=== PATIENT | male | born 1935 | race Caucasian/White ===

== ENCOUNTER 2018-03-07 21:28 | Inpatient (IN) | payer OTHER, MEDICARE ==
[~2018-03-07] VITALS: Ht 180.3 cm; Wt 101.2 kg
--- NOTE | 2018-03-07 21:29 | NUR ---
PT BIBA TO BED 06.
[2018-03-07 21:35] VITALS: BP_SYST 124; BP_SYST 88; BP_DIAS 53; BP_DIAS 58
[2018-03-07] MEDS ORDERED: NITROGLYCERIN 2% 1 GM PKT TP ONE (21:35)
--- NOTE | 2018-03-07 21:35 | NUR ---
pt biba for c/o sob chest pain since 1800 pt on bipap @ 50% en route to hospital. pt given 04 mg nitro sl. pt aaox2 following commands moving extremities. pt has rhonchi, rales bilaterally. SR 90s trace edema noted. abd soft non distended. bruising noted to bilateral upper arms, bp 90/56 @ this time. 100% spo2. MD and RT @ bedside. will continue to observe pmh: bph, htn, hypothroid, TE-MOAK, neuropathy ax: NKA
--- NOTE | 2018-03-07 21:55 | NUR ---
new piv started to R AC 20g and 22g R hand. no acute distress.
[2018-03-07 22:11] LABS: HEMOGLOBIN 7.1 g/dL (12.0-18.0); LYMPHOCYTES # (AUTO) 0.9 K/uL (2.0-11.5); NEUTROPHILS # (AUTO) 7.3 K/uL (1.8-7.7); NEUTROPHILS % (AUTO) 83.2 % (42.2-75.2); RED CELL DISTRIBUTION WIDTH 18.8 % (11.6-13.7)
--- NOTE | 2018-03-07 22:11 | NUR ---
2129 PLACED PATIENT ON BIPAP IPAP 12 EPAP6 RR 18 FIO2 70%. LARGE FACE MASK
--- NOTE | 2018-03-07 22:12 | NUR ---
2205 ABG DRAWN AND LOWERED FIO2 TO 30% POST ABG
--- NOTE | 2018-03-07 22:20 | NUR ---
TOOK PATIENT OFF BIPAP AND PLACED PT ON 2LNC PER DR MARS ORDERS
--- NOTE | 2018-03-07 22:25 | NUR ---
pt sitting up in bed, denies cp sob @ this time. pt on 2L NC 100% spo2 rr22 90s SR bp 128/72. no acute distress noted
[2018-03-07 22:28] LABS: PROTHROMBIN TIME 9.7 secs (10.8-13.4)
[2018-03-07 22:32] LABS: BASOPHILS % (AUTO) 0.3 % (0.0-2.0); EOSINOPHILS % (AUTO) 0.4 % (0.0-4.0); HEMATOCRIT 23.1 % (36-52); LYMPHOCYTES % (AUTO) 10.5 % (20.5-51.1); MEAN CORPUSCULAR HEMOGLOBIN 24 pg (27-31); MEAN CORPUSCULAR HGB CONC 31 g/dL (33-37); MEAN CORPUSCULAR VOLUME 76.9 fL (80-94); MONOCYTES # (AUTO) 0.5 K/uL (0.8-1.0); MONOCYTES % (AUTO) 5.6 % (1.7-9.3); PLATELET COUNT (AUTO) 471 K/uL (140-450); WHITE BLOOD COUNT (AUTO) 8.8 K/uL (4.8-10.8)
[2018-03-07] MEDS ORDERED: FUROSEMIDE 40 MG/4 ML VIAL IVP ONE (22:35)
[2018-03-07 22:46] LABS: CHLORIDE 107 mmol/L (98-107); GLUCOSE 227 mg/dL (74-106); POTASSIUM 3.9 mmol/L (3.5-5.1); SODIUM SERUM 141 mmol/L (136-145)
[2018-03-07 22:47] LABS: ALBUMIN 2.8 g/dL (3.4-5.0); ASPARTATE AMINOTRANSFERASE 24 U/L (15-37); CREATININE 0.9 mg/dL (0.7-1.3)
[2018-03-07] MEDS ORDERED: SYN.05 PO (22:50)
[2018-03-07] MEDS ORDERED: TAMS0.4C96 PO (22:50)
[2018-03-07] MEDS ORDERED: GABA300C PO (22:50)
[2018-03-07] MEDS ORDERED: NIFE60TE8 PO (22:50)
[2018-03-07] MEDS ORDERED: LISI10TA11 PO (22:50)
[2018-03-07 22:56] LABS: ANION GAP 12.7 (8-16); CARBON DIOXIDE 25.2 mmol/L (21-32)
[2018-03-07 22:57] LABS: TOTAL BILIRUBIN 0.2 mg/dL (0.0-1.0); UREA NITROGEN, BLOOD 26 mg/dL (7-18)
[2018-03-07] MEDS ORDERED: HYDROcodone/APAP 7.5/325 MG 1 TAB PO PRN (23:00)
[2018-03-07] MEDS ORDERED: ACETAMINOPHEN 325 MG TAB PO PRN (23:00)
[2018-03-07] MEDS ORDERED: DOCUSATE SODIUM 100 MG GELCAP PO PRN (23:00)
[2018-03-07] MEDS ORDERED: ONDANSETRON 4 MG/2 ML VIAL IM/IVP PRN (23:00)
[2018-03-07] MEDS ORDERED: NACL 0.9% 3,000 ML IV ONE (23:05)
[2018-03-07] MEDS ORDERED: ASPIRIN 81 MG TAB.CHEW PO ONE (23:05)
[2018-03-07 23:29] VITALS: BP 139/71
--- NOTE | 2018-03-07 23:29 | NUR ---
PT ARRIVED TO UNIT VIA GURNEY. ASSISTED PT TO BED. RECEIVED REPORT FROM ER NURSE CARLOS-RN AT BEDSIDE. AOX4, ON 2L/NC WITH RHONCHI SOUNDS, RIGHT INDEX 22G AND RIGHT AC #20 RUNNING 3 BAGS OF IVF NS 0.9%. GENERALIZED +1 PITTING EDEMA ON BILATERAL LOWER EXTREMITIES. GENERALIZED BRUISING. 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 FAMILY AT BEDSIDE AND DR. GLORIA HAYES AT BEDSIDE. DISCUSSED PLAN OF CARE AND PT VERBALIZED UNDERSTANDING. NO S/S OF RESPIRATORY DISTRESS OR DISCOMFORT. VITAL SIGNS TAKEN AND TOLERATED WELL. MRSA SWAB COLLECTED. BED IN LOWEST POSITION, BED BREAKS ON, BOTH SIDE RAILS UP AND FALL PRECAUTIONS IN PALACE. BEDSIDE TABLE AND CALL LIGHT ARE WITHIN REACH. WILL CONTINUE TO MONITOR.
[2018-03-07 23:38] LABS: CHOL/HDL RATIO 2.4 (1-4.5); FREE T4 (FREE THYROXINE) 1.13 ng/dL (0.76-1.46); MAGNESIUM 2.2 mg/dL (1.8-2.4); PHOSPHORUS 3.4 mg/dL (2.5-4.9); THYROID STIMULATING HORMONE 2.19 uIU/mL (0.34-3.74)
--- NOTE | 2018-03-07 23:38 | NUR ---
Pt transferred to Tele via BED 107B WITH KEESHA GONZALEZ.
[2018-03-07 23:56] LABS: APPEARANCE,URINE CLEAR (CLEAR); BILIRUBIN,URINE NEGATIVE (NEGATIVE); BLOOD, URINE NEGATIVE (NEGATIVE); COLOR,URINE YELLOW (YELLOW); LEUKOCYTE ESTERASE ,URINE NEGATIVE (NEGATIVE); NITRITE, URINE NEGATIVE (NEGATIVE); PH,URINE 5.5 (5.0-9.0); UGLUCOSE TRACE (NEGATIVE)
[2018-03-08] LABS: BARBITURATE, URINE NEG. ng/ml (NEG <=200); BENZODIAZEPINE, URINE NEG. ng/mL (NEG <=200); CANNABINOID, URINE NEG. ng/mL (NEG <=50); COCAINE, URINE NEG. ng/mL (NEG <=300); OPIATE, URINE NEG. ng/mL (NEG <=2000); PHENCYCLIDINE SCREEN,URINE NEG. ng/mL (NEG <=25)
[2018-03-08] MEDS ORDERED: hePARIN / DEXT 5% PREMIX 250 ML IV SCH ×3 (00:40→19:00)
[2018-03-08] MEDS ORDERED: HEPARIN PER PHARMACY MC PRN ×2 (00:40→16:30)
--- NOTE | 2018-03-08 01:00 | NUR ---
PT RESTING IN BED. NO S/S OF RESPIRATORY DISTRESS OR DISCOMFORT NOTED AT THIS TIME. WILL CONTINUE TO MONITOR.
[2018-03-08] MEDS ORDERED: MECLIZINE 25 MG TAB PO PRN (01:40)
[2018-03-08] MEDS ORDERED: NITROGLYCERIN 0.4 MG TAB SL PRN (01:50)
[2018-03-08] MEDS ORDERED: INSULIN LISPRO SLIDING SCALE 100 UNITS/ML VIAL SUBQ PRN (01:55)
[2018-03-08] MEDS ORDERED: DEXTROSE 50% 50 ML SYR IVP PRN (01:55)
[2018-03-08] MEDS ORDERED: ALBUTEROL SULFATE/IPRATROPIU 3 ML SOL IH PRN (01:55)
--- NOTE | 2018-03-08 03:00 | NUR ---
PT CONTINUES TO REST IN BED. NO S/S OF RESPIRATORY DISTRESS OR DISCOMFORT NOTED AT THIS TIME. WILL CONTINUE TO MONITOR.
[2018-03-08 04:00] VITALS: BP 127/57
--- NOTE | 2018-03-08 04:00 | NUR ---
VITAL SIGNS TAKEN AND TOLERATED WELL. NO S/S OF RESPIRATORY DISTRESS OR DISCOMFORT NOTED AT THIS TIME. WILL CONTINUE TO MONITOR.
--- NOTE | 2018-03-08 06:00 | NUR ---
BLOOD GLUCOSE 181- WILL ADMINISTER INSULIN COVERAGE.
[2018-03-08] MEDS: BLOOD GLUCOSE MONITORING 1 DEV DEV FS SCH ×4 (06:36→21:46)
[2018-03-08] MEDS: LEVOTHYROXINE 0.05 MG TAB PO SCH (06:36)
--- NOTE | 2018-03-08 06:40 | NUR ---
SCHEDULED MEDICATION AND INSULIN COVERAGE GIVEN. PT TOLERATED WELL. NO S/S OF RESPIRATORY DISTRESS OR DISCOMFORT NOTED AT THIS TIME. WILL CONTINUE TO MONITOR.
--- NOTE | 2018-03-08 07:29 | NUR ---
ENDORSED PT CARE TO DAY SHIFT NURSE ALFREDO FOR CONTINUITY OF CARE.
--- NOTE | 2018-03-08 07:33 | NUR ---
PATIENT HAS BEEN SCREENED AND CATEGORIZED MODERATE NUTRITION RISK. PATIENT WILL BE SEEN WITHIN 3-5 DAYS OF ADMISSION. 03/09/18-03/11/18 RAFFY BERGMAN MS, RDN
--- NOTE | 2018-03-08 07:35 | NUR ---
RECEIVED PT FROM LUMBER PULLER NURSE, NOLAN, PT IS ON O2 2L VIA NC, O2 WAS INCREASES TO 3L, BREATHING IS LABORED AND TACHYPNEIC, RATE IS 28/MIN, PT DENIES PAIN, PT WAS REPOSITIONED UPRIGHT, PT HAS IV LINES ON THE RT AC G. 20 AND RT INDEX FINGER G.22, BOTH INTACT AND ON SALINE LOCKS. WILL CONTINUE TO MONITOR PT.
[2018-03-08] MEDS: ALBUTEROL SULFATE/IPRATROPIU 3 ML SOL IH SCH ×3 (07:47→19:38)
--- NOTE | 2018-03-08 07:50 | NUR ---
PT'S VITAL SIGNS WERE CHECKED AND WITHIN NORMAL LIMIT, PT'S BREATHING IS NORMAL NOW AND BREATHING TX WAS BEING GIVEN BY RT. NO SIGN OF DISTRESS NOTED AND WILL CONTINUE TO MONITOR PT.
[2018-03-08 07:53] LABS: BASOPHILS # (AUTO) 0.1 K/uL (0.00-0.22); BASOPHILS % (AUTO) 0.5 % (0.0-2.0); HEMATOCRIT 24.9 % (36-52); HEMOGLOBIN 7.4 g/dL (12.0-18.0); LYMPHOCYTES # (AUTO) 1.2 K/uL (2.0-11.5); LYMPHOCYTES % (AUTO) 6.4 % (20.5-51.1); MEAN CORPUSCULAR HEMOGLOBIN 23 pg (27-31); MEAN CORPUSCULAR HGB CONC 30 g/dL (33-37); MEAN CORPUSCULAR VOLUME 78.3 fL (80-94); MONOCYTES # (AUTO) 0.8 K/uL (0.8-1.0); MONOCYTES % (AUTO) 4.2 % (1.7-9.3); NEUTROPHILS # (AUTO) 16.9 K/uL (1.8-7.7); NEUTROPHILS % (AUTO) 88.9 % (42.2-75.2); PLATELET COUNT (AUTO) 503 K/uL (140-450); RED BLOOD CELL COUNT(AUTO) 3.19 MIL/uL (4.20-6.10)
[2018-03-08 08:00] VITALS: BP 126/67
[2018-03-08 08:10] LABS: ANION GAP 16.5 (8-16); CARBON DIOXIDE 23.8 mmol/L (21-32); CHLORIDE 106 mmol/L (98-107); CREATININE 0.9 mg/dL (0.7-1.3); GLUCOSE 196 mg/dL (74-106); POTASSIUM 4.3 mmol/L (3.5-5.1); SODIUM SERUM 142 mmol/L (136-145); UREA NITROGEN, BLOOD 25 mg/dL (7-18)
--- NOTE | 2018-03-08 08:30 | NUR ---
RECEIVED REPORT FROM JOHNNY FROM LAB ABOUT PT'S TROPONIN LEVEL OF 1.438, ACKNOWLEDGED AND WILL RELAY TO
--- NOTE | 2018-03-08 08:35 | NUR ---
INFORMED DR. MCCORMACK OF PT'S TROPONIN LEVEL OF 1.438, MD ACKNOWLEDGED.
[2018-03-08] MEDS ORDERED: METOPROLOL 25 MG TAB PO SCH (09:00)
[2018-03-08] MEDS ORDERED: FUROSEMIDE 40 MG/4 ML VIAL IVP SCH (09:00)
[2018-03-08] MEDS ORDERED: SODIUM FERRIC GLUCONATE 125 MG in NACL 0.9% 100 ML IV ONE (09:00)
[2018-03-08] MEDS ORDERED: NIFEdipine 60 MG TABER PO SCH (09:00)
[2018-03-08] MEDS: TAMSULOSIN 0.4 MG CAP PO SCH (09:18)
[2018-03-08] MEDS: LISINOPRIL 10 MG TAB PO SCH (09:19)
[2018-03-08] MEDS: GABAPENTIN 300 MG CAP PO SCH ×4 (09:19→21:45)
--- NOTE | 2018-03-08 09:25 | NUR ---
ULTRASOUND OF THE CHEST AND MEDIASTINUM WAS BEING DONE TO PT NOW. DR. BUSH ON THE BEDSIDE.
--- NOTE | 2018-03-08 09:35 | NUR ---
DR. BUSH CAME TO PT'S ROOM, SPOKE TO PT AND ASSESSED WELL, PT VERBALIZED UNDERSTANDING OF WHAT DR. BUSH IS SAYING.
--- NOTE | 2018-03-08 10:00 | NUR ---
ULTRASOUND OF THE BILATERAL CAROTID WAS BEING DONE TO PT NOW.
--- NOTE | 2018-03-08 10:30 | NUR ---
ULTRASOUND OF THE ARTERIAL AND VENOUS OF THE BILATERAL LOWER EXTREMITY IS BEING DONE TO PT NOW, NO SIGN OF DISTRESS NOTED.
--- NOTE | 2018-03-08 11:10 | NUR ---
PT IS OFF THE UNIT NOW FOR A CT OF THE CHEST , ABDOMEN AND PELVIS WITHOUT CONTRAST, PT IS STABLE AT THIS TIME.
--- NOTE | 2018-03-08 11:45 | NUR ---
PT UIS BACK TO ROOM FROM RADIOLOGY
[2018-03-08 12:00] VITALS: BP 124/61
[2018-03-08] MEDS: PIPER/TAZO 3.375GM/D5W PREMIX 50 ML IV SCH ×2 (12:44→21:59)
[2018-03-08 16:00] VITALS: BP 105/48
--- NOTE | 2018-03-08 16:30 | NUR ---
CINDY FROM LAB CALLED AND REPORTED THE PT'S TROPONIN LEVEL OF 5.229.
--- NOTE | 2018-03-08 16:35 | NUR ---
INFORMED DR. MCCORMACK OF PT'S TROPONIN LEVEL OF 5.229 AND SAID THAT HE WILL SEE THE PT.
--- NOTE | 2018-03-08 16:45 | NUR ---
PT IS AWAKE AND SEATED ON THE BED WITH FAMILY ON THE BEDSIDE, BLOOD GLUCOSE CHECK DONE AND RESULT IS 126, NO INSULIN COVERAGE NEEDED. VITAL SIGNS TAKEN AND IS WITHIN NORMAL LIMIT. WILL MONITOR PT.
[2018-03-08] MEDS ORDERED: ATORVASTATIN 20 MG TAB PO SCH (17:00)
[2018-03-08] MEDS: FERROUS GLUCONATE 324 MG TAB PO SCH (17:24)
[2018-03-08] MEDS: ATORVASTATIN 20 MG TAB PO SCH (17:25)
--- NOTE | 2018-03-08 17:33 | NUR ---
PT IS AWAKE AND FAMILY ON THE BEDSIDE, ORAL MEDICATIONS GIVEN AND PT TOLERATED IT. WILL CONTINUE TO MONITOR PT.
--- NOTE | 2018-03-08 18:20 | NUR ---
REPORTED TO DR. MCCORMACK THAT PT'S EKG READING IS ATRIAL FIBRILLATION ON MONITOR, ACKNOWLEDGED AND SAID THAT HE WILL ORDER EKG FOR THE PT.
--- NOTE | 2018-03-08 18:30 | NUR ---
CONSENT FOR BLOOD TRANSFUSION FOR THE PT WAS SIGNED BY FAMILY MEMBER WITH THE APPROVAL OF THE PT AND VERBALIZED UNDERSTANDING.
--- NOTE | 2018-03-08 18:50 | NUR ---
PT'S IV LINE WAS INFILTRATED AND A NEW IV LINE WAS STARTED ON THE RT FA G. 20.
[2018-03-08] MEDS ORDERED: CARVEDILOL 6.25 MG TAB PO SCH (19:00)
--- NOTE | 2018-03-08 19:30 | NUR ---
PT WAS STARTED ON BLOOD TRANSFUSION, VERIFIED BY KEESHA WHITEHEAD ON BEDSIDE.
--- NOTE | 2018-03-08 19:35 | NUR ---
ENDORSED PT TO LOUVER MORTISER OPERATOR NURSE, NOLAN, FOR CONTINUITY OF CARE, PT HAS A BLOOD TRANSFUSION GOING AND FAMILY ON THE BEDSIDE, PT IS STABLE AT THIS TIME.
--- NOTE | 2018-03-08 19:36 | NUR ---
RECEIVED REPORT FROM DAY SHIFT NURSE SHANTELL-RN AT BEDSIDE. AOX4, ON 2L/NC WITH RHONCHI SOUNDS, RIGHT INDEX 22G AND RIGHT FA #20G. GENERALIZED +1 PITTING EDEMA ON BILATERAL LOWER EXTREMITIES. GENERALIZED BRUISING. 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 FAMILY AT BEDSIDE. DISCUSSED PLAN OF CARE AND PT VERBALIZED UNDERSTANDING. NO S/S OF RESPIRATORY DISTRESS OR DISCOMFORT. BED IN LOWEST POSITION, BED BREAKS ON, BOTH SIDE RAILS UP AND FALL PRECAUTIONS IN PALACE. ASPIRATION PRECAUTIONS IN PLACE. BEDSIDE TABLE AND CALL LIGHT ARE WITHIN REACH. WILL CONTINUE TO MONITOR.
--- NOTE | 2018-03-08 19:46 | NUR ---
PATIENT RESTING. SPUTUM COLLECTION ATTEMPTED. NO COUGH AND BREATH SOUNDS ARE CLEAR/DIMINISHED. SPUTUM COLLECTION EXPLAINED AND CUP LEFT AT BEDSIDE WITHIN REACH.
[2018-03-08 20:00] VITALS: BP 103/52
--- NOTE | 2018-03-08 20:00 | NUR ---
VITAL SIGNS TAKEN AND TOLERATED WELL. NO S/S OF RESPIRATORY DISTRESS OR DISCOMFORT NOTED AT THIS TIME. WILL CONTINUE TO MONITOR.
--- NOTE | 2018-03-08 20:00 | NUR ---
BLOOD GLUCOSE 144- NO INSULIN COVERAGE NEEDED. PT TOLERATED WELL.
[2018-03-08] MEDS ORDERED: INFLUENZA VIRUS VACCINE QUAD 0.5 ML SYR IMVAC PRN (21:30)
[2018-03-08] MEDS: METOPROLOL 25 MG TAB PO SCH (21:46)
--- NOTE | 2018-03-08 21:46 | NUR ---
SCHEDULED MEDICATION GIVEN AND TOLERATED WELL. NO S/S OF RESPIRATORY DISTRESS OR DISCOMFORT NOTED AT THIS TIME. WILL CONTINUE TO MONITOR.
--- NOTE | 2018-03-08 21:59 | NUR ---
SCHEDULED MEDICATION ZOSYN GIVEN AND TOLERATED WELL. NO S/S OF RESPIRATORY DISTRESS OR DISCOMFORT NOTED AT THIS TIME. WILL CONTINUE TO MONITOR.
--- NOTE | 2018-03-08 22:35 | NUR ---
CALLED [facility] AND TALKED W/MEDICAL RECORDS AUDITOR.SHE SAID ASKED FOR CRITICAL BED AND THEY DON'T HAVE CRITICAL BED NOW.
--- NOTE | 2018-03-08 23:15 | NUR ---
BLOOD TRANSFUSION COMPLETED. PT TOLERATED WELL. WILL CONTINUE TO MONITOR.
[2018-03-09] VITALS: BP 104/44
--- NOTE | 2018-03-09 | NUR ---
VITAL SIGNS TAKEN AND TOLERATED WELL. NO S/S OF RESPIRATORY DISTRESS OR DISCOMFORT NOTED AT THIS TIME. WILL CONTINUE TO MONITOR.
--- NOTE | 2018-03-09 00:51 | NUR ---
CRITICAL LAB VALUE TROPONIN 4.265- DECREASING. DR. ORTEGA AWARE. NO NEW ORDERS.
[2018-03-09 00:53] LABS: BASOPHILS % (AUTO) 0.2 % (0.0-2.0); EOSINOPHILS % (AUTO) 0.4 % (0.0-4.0); HEMATOCRIT 24.8 % (36-52); HEMOGLOBIN 7.5 g/dL (12.0-18.0); LYMPHOCYTES % (AUTO) 9.7 % (20.5-51.1); MEAN CORPUSCULAR HEMOGLOBIN 24 pg (27-31); MEAN CORPUSCULAR HGB CONC 30 g/dL (33-37); MONOCYTES # (AUTO) 0.7 K/uL (0.8-1.0); MONOCYTES % (AUTO) 7.1 % (1.7-9.3); NEUTROPHILS # (AUTO) 8.4 K/uL (1.8-7.7); PLATELET COUNT (AUTO) 385 K/uL (140-450); RED BLOOD CELL COUNT(AUTO) 3.18 MIL/uL (4.20-6.10); RED CELL DISTRIBUTION WIDTH 19.1 % (11.6-13.7); WHITE BLOOD COUNT (AUTO) 10.2 K/uL (4.8-10.8)
[2018-03-09 01:00] LABS: NEUTROPHILS % (AUTO) 82.6 % (42.2-75.2)
--- NOTE | 2018-03-09 01:29 | NUR ---
HEPARIN BOLUS GIVEN. PT TOLERATED WELL. NO S/S OF RESPIRATORY DISTRESS OR DISCOMFORT NOTED AT THIS TIME. WILL CONTINUE TO MONITOR.
--- NOTE | 2018-03-09 01:32 | NUR ---
HEPARIN IV INFUSION STARTED. PT TOLERATED WELL. NO S/S OF RESPIRATORY DISTRESS OR DISCOMFORT NOTED AT THIS TIME. WILL CONTINUE TO MONITOR.
--- NOTE | 2018-03-09 02:00 | NUR ---
PT CONTINUES TO SLEEP. NO S/S OF RESPIRATORY DISTRESS OR DISCOMFORT NOTED AT THIS TIME. WILL CONTINUE TO MONITOR.
[2018-03-09 04:00] VITALS: BP 126/64
--- NOTE | 2018-03-09 04:00 | NUR ---
VITAL SIGNS TAKEN AND TOLERATED WELL. NO S/S OF RESPIRATORY DISTRESS OR DISCOMFORT NOTED AT THIS TIME. WILL CONTINUE TO MONITOR.
[2018-03-09] MEDS: PIPER/TAZO 3.375GM/D5W PREMIX 50 ML IV SCH (04:28)
--- NOTE | 2018-03-09 04:28 | NUR ---
SCHEDULED MEDICATION GIVEN HOWEVER PT BEGAN TO C/O A BURNING PAIN IN IV SITE. WILL INSERT NEW IV AND DISCONTINUE THE RIGHT INDEX IV SITE. NO S/S OF RESPIRATORY DISTRESS OR DISCOMFORT NOTED AT THIS TIME. WILL CONTINUE TO MONITOR.
--- NOTE | 2018-03-09 05:00 | NUR ---
NEW IV SITE: RIGHT FA #22 WAS INSERTED BY CHARGE NURSE FABBY ON FIRST ATTEMPT. PT TOLERATED WELL. IV SITE USED TO ADMINISTER ZOSYN. PT TOLERATED WELL. NO S/S OF RESPIRATORY DISTRESS OR DISCOMFORT NOTED AT THIS TIME. WILL CONTINUE TO MONITOR.
[2018-03-09] MEDS: LEVOTHYROXINE 0.05 MG TAB PO SCH (06:11)
--- NOTE | 2018-03-09 06:11 | NUR ---
SCHEDULED MEDICATION GIVEN. BLOOD GLUCOSE 126- NO INSULIN COVERAGE NEEDED. PT TOLERATED WELL. NO S/S OF RESPIRATORY DISTRESS OR DISCOMFORT NOTED AT THIS TIME. WILL CONTINUE TO MONITOR.
[2018-03-09] MEDS: BLOOD GLUCOSE MONITORING 1 DEV DEV FS SCH ×4 (06:18→21:09)
--- NOTE | 2018-03-09 07:14 | NUR ---
REPORT GIVEN TO DAY SHIFT NURSE SHANTELL-KEESHA FOR CONTINUITY OF CARE.
--- NOTE | 2018-03-09 07:18 | NUR ---
RECEIVED PT FROM GOLF RANGE ATTENDANT NURSE, NOLAN, PT IS AWAKE AND LYING ON THE BED WITH SIDE RAILS UP AND CALL LIGHT WITHIN REACH, FALL AND SAFETY PRECAUTION INITIATED. PT HAS IV LINES ON THE RT FA G. 20 WITH HEPARIN DRIP RUNNING AT 10OO UNITS/HR AND G. 22 ON SALINE LOCK. PT IS ON O2 3L VIA NC, RESPIRATION EVEN. PT DENIES ANY PAIN AND NO SIGN OF DISTRESS NOTED. WILL CONTINUE TO MONITOR PT.
[2018-03-09 07:32] LABS: BASOPHILS % (AUTO) 0.5 % (0.0-2.0); EOSINOPHILS # (AUTO) 0.1 K/uL (0-0.4); EOSINOPHILS % (AUTO) 0.7 % (0.0-4.0); HEMATOCRIT 25.4 % (36-52); HEMOGLOBIN 7.6 g/dL (12.0-18.0); LYMPHOCYTES % (AUTO) 10.6 % (20.5-51.1); MEAN CORPUSCULAR HEMOGLOBIN 24 pg (27-31); MEAN CORPUSCULAR HGB CONC 30 g/dL (33-37); MEAN CORPUSCULAR VOLUME 78.8 fL (80-94); MONOCYTES # (AUTO) 0.6 K/uL (0.8-1.0); MONOCYTES % (AUTO) 6.1 % (1.7-9.3); NEUTROPHILS # (AUTO) 7.7 K/uL (1.8-7.7); NEUTROPHILS % (AUTO) 82.1 % (42.2-75.2); PLATELET COUNT (AUTO) 402 K/uL (140-450); RED BLOOD CELL COUNT(AUTO) 3.23 MIL/uL (4.20-6.10); RED CELL DISTRIBUTION WIDTH 19.2 % (11.6-13.7); WHITE BLOOD COUNT (AUTO) 9.4 K/uL (4.8-10.8)
[2018-03-09 08:00] VITALS: BP 127/54
[2018-03-09] MEDS: ALBUTEROL SULFATE/IPRATROPIU 3 ML SOL IH SCH ×3 (08:14→19:28)
[2018-03-09 08:23] LABS: ANION GAP 13.1 (8-16); CARBON DIOXIDE 26.6 mmol/L (21-32); CHLORIDE 108 mmol/L (98-107); CREATININE 0.9 mg/dL (0.7-1.3); GLUCOSE 129 mg/dL (74-106); POTASSIUM 3.7 mmol/L (3.5-5.1); SODIUM SERUM 144 mmol/L (136-145); UREA NITROGEN, BLOOD 29 mg/dL (7-18)
[2018-03-09 08:28] LABS: MAGNESIUM 2.2 mg/dL (1.8-2.4); PHOSPHORUS 3.7 mg/dL (2.5-4.9)
[2018-03-09] MEDS ORDERED: CARVEDILOL 6.25 MG TAB PO SCH (09:00)
[2018-03-09] MEDS: METOPROLOL 25 MG TAB PO SCH (09:00)
[2018-03-09] MEDS: LISINOPRIL 10 MG TAB PO SCH (09:00)
[2018-03-09] MEDS: TAMSULOSIN 0.4 MG CAP PO SCH (09:33)
[2018-03-09] MEDS: GABAPENTIN 300 MG CAP PO SCH ×2 (09:34→21:10)
[2018-03-09] MEDS: PANTOPRAZOLE 40 MG INJ VIAL IVP SCH (09:34)
[2018-03-09] MEDS: FERROUS GLUCONATE 324 MG TAB PO SCH ×2 (09:35→16:35)
--- NOTE | 2018-03-09 09:36 | NUR ---
SPOKE TO DR. MCCORMACK AND INFORMED OF THE PT'S BP RESULT OF 127/54 AND PULSE OF 84, DR. MCCORMACK ORDERED TO HOLD OFF FOR THE COREG, METOPROLOL AND LISINOPRIL. ACKNOWLEDGED AND WILL MONITOR PT.
--- NOTE | 2018-03-09 10:45 | NUR ---
DR. ROSE AND DR. MCCORMACK CAME TO THE PT'S ROOM AND SPOKE TO PT REGARDING THE PLAN OF CARE AND PT VERBALIZED UNDERSTANDING.
--- NOTE | 2018-03-09 11:00 | NUR ---
BLOOD TRANSFUSION WAS STARTED TO THE PT NOW, V/S CHECKED 15 MINS PRIOR. WILL CONTINUE TO MONITOR PT.
[2018-03-09] MEDS ORDERED: MAGNESIUM CITRATE 300 ML BTL PO SCH (11:10)
[2018-03-09] MEDS ORDERED: FUROSEMIDE 20 MG/2 ML VIAL IVP SCH ×3 (11:30→16:00)
--- NOTE | 2018-03-09 11:46 | NUR ---
PT IS SEATED ON THE EDGE OF THE BED, WITH FAMILY ON THE BEDSIDE, MAGNESIUM CITRATE WAS STARTED AND GIVEN TO PT.
[2018-03-09 12:00] VITALS: BP 123/79
[2018-03-09] MEDS: SENNA 8.6 MG TAB PO SCH ×2 (12:26→16:34)
--- NOTE | 2018-03-09 14:20 | NUR ---
BLOOD TRANSFUSION WAS FINISHED NOW, NO REACTION NOTED ON THE PT, V/S TAKEN AND IS STABLE. NO SIGN OF DISTRESS NOTED, WILL CONTINUE TO MONITOR PT.
[2018-03-09 15:11] LABS: BASOPHILS % (AUTO) 0.2 % (0.0-2.0); EOSINOPHILS % (AUTO) 0.3 % (0.0-4.0); HEMATOCRIT 26.7 % (36-52); HEMOGLOBIN 8.1 g/dL (12.0-18.0); MEAN CORPUSCULAR HEMOGLOBIN 24 pg (27-31); MEAN CORPUSCULAR HGB CONC 30 g/dL (33-37); MEAN CORPUSCULAR VOLUME 77.6 fL (80-94); MONOCYTES # (AUTO) 0.8 K/uL (0.8-1.0); MONOCYTES % (AUTO) 6.7 % (1.7-9.3); NEUTROPHILS # (AUTO) 9.7 K/uL (1.8-7.7); NEUTROPHILS % (AUTO) 83.8 % (42.2-75.2); PLATELET COUNT (AUTO) 380 K/uL (140-450); RED BLOOD CELL COUNT(AUTO) 3.44 MIL/uL (4.20-6.10); RED CELL DISTRIBUTION WIDTH 18.2 % (11.6-13.7); WHITE BLOOD COUNT (AUTO) 11.6 K/uL (4.8-10.8)
[2018-03-09 16:00] VITALS: BP 144/57
--- NOTE | 2018-03-09 16:33 | NUR ---
PT IS AWAKE WITH FAMILY ON THE BEDSIDE, V/S TAKEN AND IS WITHIN NORMAL LIMIT, ORAL AND IV MEDICATIONS GIVEN AND PT TOLERATED IT, BLOOD GLUCOSE CHECK DONE AND RESULT IS 90. NO SIGN OF DISTRESS NOTED. WILL CONTINUE TO MONITOR PT.
[2018-03-09] MEDS: ATORVASTATIN 20 MG TAB PO SCH (16:36)
[2018-03-09] MEDS: SODIUM FERRIC GLUCONATE 125 MG in NACL 0.9% 100 ML IV SCH (16:41)
--- NOTE | 2018-03-09 18:30 | NUR ---
PT WAS REPOSITIONED AND CLEANED NOW, PT MADE A BOWEL MOVEMENT ON THE BED.
--- NOTE | 2018-03-09 19:30 | NUR ---
RECEIVED REPORT FROM SHANTELL THAO DAYSHIFT NURSE AT BEDSIDE FOR CONTINUITY OF CARE, PT IN STABLE CONDITION.
--- NOTE | 2018-03-09 19:30 | NUR ---
ENDORSED PT TO DIRECTOR TRADE NURSE FOR CONTINUITY OF CARE.
[2018-03-09 20:00] VITALS: BP 117/45
--- NOTE | 2018-03-09 21:26 | NUR ---
PT HAD INCONTINENT EPISODE X1 HE WAS CLEANED, BED LINENS CHANGED AND PT PULLED UP IN BED. PT SKIN IN TACT AND HE IS ON 3L VIA N/C. PT IS AOX3 HE IS [place] AND HAS HEARING AIDS. PT ALSO WEARS GLASSES WHICH ARE AT BEDSIDE. HE HAS A URINAL AND BEDSIDE COMMODE AT BEDSIDE. PT LUNG SOUNDS DIMINISHED AND BOWELS SOUNDS POSITIVE ALL 4 QUADS. PT C/O 6/10 BACK PAIN AND WAS GIVEN 1 TAB NORCO ORDERED. PT ALSO RECEIVED GABAPENTIN ORDERED. V/S FOLLOWS T 97.8 P 84 R 20 B/P 117/45 02 98% WITH 3L VIA N/C. ALL FALLS PRECAUTIONS IN PLACE AND WILL CONTINUE TO MONITOR PT FOR SAFETY AND EFFECTIVENESS OF PAIN MEDICATION. FAMILY AT BEDSIDE AT THIS TIME.
--- NOTE | 2018-03-09 23:00 | NUR ---
SPOKE WITH RESIDENT MD DR. ORTEGA CONCERNING ANY MORE TROPONIN LEVELS TO BE DRAWN. NO NEW ORDERS AT THIS TIME.
[2018-03-10] VITALS: BP 120/60
--- NOTE | 2018-03-10 00:30 | NUR ---
PT SITTING UP AT EDGE OF BED V/S FOLLOWS T 98.4 P 81 R 20 B/P 120/60 02 97% WITH 3L VIA N/C. STOOL FOR BLOOD OCCULT COLLECTED AND SENT TO LAB. ORTHOSTATIC BLOOD PRESSURE DONE; SITTING 120/60/ STANDING 123/75 LYING DOWN 113/66. NO S/S OF PAIN OR DISTRESS NOTED. FAMILY AT BEDSIDE ALL FALLS AND ASPIRATIONS PRECAUTIONS IN PLACE.
--- NOTE | 2018-03-10 02:30 | NUR ---
PT IN BED SLEEPING SOUNDLY WITH NO S/S OF PAIN OR DISTRESS NOTED, ALL FALLS AND ASPIRATION PRECAUTIONS IN PLACE, FAMILY AT BEDSIDE.
--- NOTE | 2018-03-10 04:30 | NUR ---
PT AWAKE SITTING UP IN BED. PT DENIES PAIN AT THIS TIME. 02 RUNNING VIA N/C V/S FOLLOWS T 97.7 P 91 R 20 B/P 100/56 02 99% WITH 3L VIA N/C. BLOOD OCCULT SAMPLE CAME BACK POSITIVE.
[2018-03-10 04:35] VITALS: BP 100/56
[2018-03-10 05:21] VITALS: BP 100/56
--- NOTE | 2018-03-10 06:00 | NUR ---
PT PULLED UP AND REPOSITIONED IN BED F/S IS 109 NO COVERAGE NEEDED, PT DENIES PAIN AT THIS TIME. SON AT BEDSIDE.
[2018-03-10] MEDS: LEVOTHYROXINE 0.05 MG TAB PO SCH (06:02)
[2018-03-10] MEDS: BLOOD GLUCOSE MONITORING 1 DEV DEV FS SCH ×4 (06:08→20:22)
--- NOTE | 2018-03-10 07:30 | NUR ---
RECEIVED PT REPORT FROM EARTH SCIENCE LABORATORY TECHNICIAN NURSE AT BEDSIDE. PT IS AAOX3, NO S/S OF ACUTE DISTRESS ON 3L O2 NC. FALL AND SAFETY PRECAUTION IN PLACE. IV CATH NOTED ON THE RT FA 20G AND 22G, BOTH SL, PATENT AND INTACT. RESPIRATION EVEN. PT DENIES ANY PAIN. BED IN LOWEST POSITION. CALL LIGHT WITHIN REACH. WILL CONTINUE TO MONITOR PT.
--- NOTE | 2018-03-10 07:33 | NUR ---
REPORT GIVEN TO ILDEFONSO RN AND KOMAL RN DAYSHIFT NURSE AT BEDSIDE FOR CONTINUITY OF CARE, PT INSTABLE CONDITION.
[2018-03-10] MEDS: ALBUTEROL SULFATE/IPRATROPIU 3 ML SOL IH SCH ×3 (07:35→19:49)
--- NOTE | 2018-03-10 07:53 | NUR ---
DECREASED FIO2 TO 2LPM NC RN AWARE
[2018-03-10 08:15] VITALS: BP 129/66
[2018-03-10 08:15] LABS: MAGNESIUM 2.7 mg/dL (1.8-2.4)
[2018-03-10 08:19] LABS: HEMATOCRIT 29.7 % (36-52); HEMOGLOBIN 8.8 g/dL (12.0-18.0); MEAN CORPUSCULAR HEMOGLOBIN 23 pg (27-31); MEAN CORPUSCULAR HGB CONC 30 g/dL (33-37); MEAN CORPUSCULAR VOLUME 78.8 fL (80-94); PLATELET COUNT (AUTO) 397 K/uL (140-450); RED BLOOD CELL COUNT(AUTO) 3.77 MIL/uL (4.20-6.10); RED CELL DISTRIBUTION WIDTH 18.7 % (11.6-13.7); WHITE BLOOD COUNT (AUTO) 9.8 K/uL (4.8-10.8)
--- NOTE | 2018-03-10 08:20 | NUR ---
HELPED PT TO GET ON BEDSIDE COMMODE. PT HAD BMX1, LIQUID STOOL, DARK GREEN COLOR. PT WAS CLEANED AND SAFELY RETURNED TO BED.
[2018-03-10 08:28] LABS: LYMPHOCYTES % (MANUAL) 10 % (20-46); MONOCYTES % (MANUAL) 10 % (5-12)
[2018-03-10 08:29] LABS: EOSINOPHILS % (MANUAL) 1 % (0-4)
[2018-03-10] MEDS ORDERED: FUROSEMIDE 40 MG/4 ML VIAL IVP SCH (09:00)
[2018-03-10] MEDS: LISINOPRIL 10 MG TAB PO SCH (09:00)
[2018-03-10] MEDS ORDERED: METOPROLOL SUCCINATE 50 MG TABER PO SCH ×2 (09:00)
[2018-03-10 09:04] LABS: ANION GAP 12.5 (8-16); CARBON DIOXIDE 29.3 mmol/L (21-32); CHLORIDE 105 mmol/L (98-107); CREATININE 0.8 mg/dL (0.7-1.3); GLUCOSE 115 mg/dL (74-106); POTASSIUM 3.8 mmol/L (3.5-5.1); SODIUM SERUM 143 mmol/L (136-145); UREA NITROGEN, BLOOD 28 mg/dL (7-18)
[2018-03-10] MEDS: TAMSULOSIN 0.4 MG CAP PO SCH (09:12)
[2018-03-10] MEDS: SENNA 8.6 MG TAB PO SCH ×3 (09:12→17:00)
[2018-03-10] MEDS: FERROUS GLUCONATE 324 MG TAB PO SCH ×2 (09:14→17:15)
[2018-03-10] MEDS: PANTOPRAZOLE 40 MG INJ VIAL IVP SCH (09:15)
[2018-03-10] MEDS: GABAPENTIN 300 MG CAP PO SCH ×2 (09:16→20:22)
--- NOTE | 2018-03-10 09:19 | NUR ---
PT'S BLOOD PRESSURE STABLE AT THIS TIME, PT IS GETTING METOPROLOL 25MG, AND LASIX 40MG IVP, LISINOPRIL WAS HELD YESTERDAY, CONTINUE TO HOLD TODAY, PT AGREES.
[2018-03-10 12:00] VITALS: BP 115/51
[2018-03-10] MEDS ORDERED: METO50TE2 PO (12:45)
[2018-03-10] MEDS ORDERED: ALBU3SOL83 IH (12:45)
[2018-03-10] MEDS ORDERED: FURO-572 PO (12:47)
--- NOTE | 2018-03-10 13:25 | NUR ---
SPOKE WITH ALEXANDRA THOMSON TO HOLD SENNA.
--- NOTE | 2018-03-10 14:20 | NUR ---
Education General Manager Note: I faxed inquiry to [facility]. Per Janis from [facility] / , patient has been accepted and may go to room 38c at their facility, accepting physician is , charge nurse Amadeo made aware. Janis stated she will arrange transportation for patient from hospital to [facility] and contact charge nurse Amadeo and provide her with pickle cutter time, charge nurse Amadeo made aware.
--- NOTE | 2018-03-10 15:45 | NUR ---
DR. BUSH CALLED AND SHE SAID THERE'S A BED AT [facility]. MADE AWARE.
[2018-03-10 16:00] VITALS: BP 114/55
--- NOTE | 2018-03-10 16:07 | NUR ---
CALLED [facility] AND SPOKE TO TONO THAT PATIENT IS NO LONGER GOING TO THAT PLACE.
[2018-03-10] MEDS: SODIUM FERRIC GLUCONATE 125 MG in NACL 0.9% 100 ML IV SCH (16:11)
[2018-03-10] MEDS ORDERED: GABA-638 PO (16:21)
[2018-03-10] MEDS: ATORVASTATIN 20 MG TAB PO SCH (17:15)
--- NOTE | 2018-03-10 17:54 | NUR ---
CALLED [facility] EX [phone] WHICH WANTS ME TO CALL AFTER 7PM FOR GIVING REPORT.
--- NOTE | 2018-03-10 18:30 | NUR ---
DINNER TRAY MISSING, ORDERED DINNER TRAY FROM KITCHEN.
--- NOTE | 2018-03-10 19:10 | NUR ---
REPORT GIVEN TO FOUR HORSE HITCH DRIVER RNJAROD AT BEDSIDE. PT EATING RIGHT NOW, NO S/S OF DISTRESS.
--- NOTE | 2018-03-10 19:20 | NUR ---
REPORT GIVEN TO NURSE TAYLOR AT [facility]. PT GOING TO RM 255A, SURVEILLANCE SYSTEMS ANALYST TIME IS [phone]
--- NOTE | 2018-03-10 19:28 | NUR ---
RECEIVED ENDORSEMENT FROM ILDEFONSO RN DAYSHIFT NURSE FOR CONTINUITY OF CARE, PT IN STABLE CONDITION. FAMILY AT BEDSIDE AND PT EATING DINNER. FAMILY AND PT AWARE OF DISCHARGE DISCHARGE PAPERS SIGNED AND IN CHART AT THIS TIME. PT DUE TO BE TRANSFERRED AT 2030.
--- NOTE | 2018-03-10 20:30 | NUR ---
PT SITTING UP IN BED NO C/O VOICED, FAMILY AT BEDSIDE. PT RECEIVED SCHEDULED MEDICATION OF NEURONTIN 300MG FOR NERVE BRITTNY IN FEET. PT F/S WAS 132, NO COVERAGE REQUIRED AT THIS TIME. PT PREPPED FOR DISCHARGE AND WAITING FOR TRANSPORT.
--- NOTE | 2018-03-10 21:08 | NUR ---
[facility] ARRIVED REPORT GIVEN TO JESSICA AND PARTNER. PT TRANSFERED BY [facility] AND IS GOING TO [facility]. RM 255. SPIOKE WITH COVERING NURSE AND INFORMED HER THAT PT IS EN ROUTE.
[2018-03-11 11:51] LABS: T4 (THYROXINE) 6.6 ug/dL (4.5 - 12.0)
[2018-03-11 13:30] LABS: FOLIC ACID > 20.00 ng/mL (>3.0)
[2018-03-12 12:33] LABS: TRANSFERRIN 263 mg/dL (200-370)
[2018-03-14 07:02] LABS: FERRITIN 10 ng/mL (30-400)
== END 2018-03-10 21:10 | disposition short-term general hospital (02) | DRG 280 ==
LOC: MED 21:28 → MTU 23:07
PROVIDERS: ADMIT General Practice; ATTEND General Practice
PROC: 5A09357 Assistance with Respiratory Ventilation, Less than 24 Consecutive Hours, Continuous Positive Airway Pressure (ICD-10-PCS; 2018-03-07)
PROC: 30233N1 Transfusion of Nonautologous Red Blood Cells into Peripheral Vein, Percutaneous Approach (ICD-10-PCS; principal; 2018-03-08)
PROC: 3E02340 Introduction of Influenza Vaccine into Muscle, Percutaneous Approach (ICD-10-PCS; 2018-03-10)
DX: I11.0 Hypertensive heart disease with heart failure (principal); I21.A1 Myocardial infarction type 2; N17.0 Acute kidney failure with tubular necrosis; E43 Unspecified severe protein-calorie malnutrition; G93.41 Metabolic encephalopathy; K76.7 Hepatorenal syndrome; I50.43 Acute on chronic combined systolic (congestive) and diastolic (congestive) heart failure; D50.9 Iron deficiency anemia, unspecified; E03.9 Hypothyroidism, unspecified; E78.5 Hyperlipidemia, unspecified; I25.10 Atherosclerotic heart disease of native coronary artery without angina pectoris; N40.0 Benign prostatic hyperplasia without lower urinary tract symptoms; Z85.038 Personal history of other malignant neoplasm of large intestine; Z87.891 Personal history of nicotine dependence; R00.0 Tachycardia, unspecified; I48.91 Unspecified atrial fibrillation; E86.0 Dehydration; E11.65 Type 2 diabetes mellitus with hyperglycemia; G62.9 Polyneuropathy, unspecified; I35.0 Nonrheumatic aortic (valve) stenosis; Z68.31 Body mass index [BMI] 31.0-31.9, adult
CPT/HCPCS: 36415; 36600; 70450; 71045; 71250; 76604; 80048; 80053; 80305; 81003; 82150; 82272; 82607; 82728; 82746; 82803; 82948; 83036; 83540; 83605; 83690; 83735; 83880; 84100; 84436; 84439; 84443; 84479; 84484; 85025; 85045; 85610; 85730; 86870; 86886; 86900; 86901; 86920; 87040; 87081; 87086; 90658; 93005; 93880; 93925; 93970; 94640; 97116; 97530; 99285; C9113; J1644; J1815; J1940; J2543; J2916; J7030; J7620; P9016; Q0092